=== PATIENT | female | born 2000 | race Caucasian/White ===

== ENCOUNTER 2020-03-10 16:01 | Day surgery (SDC) ==
[2020-03-10] MEDS ORDERED: Lidocaine 1% (PF) 30 ML VIAL ONE (16:27)
[2020-03-10 17:23] LABS: Hemoglobin 11.9 g/dL (12.0-16.0); Mean Corpuscular HGB CONC 33.4 g/dL (32.0-36.0); Mean Corpuscular Hemoglobin 27.8 pg (25.0-35.0); Mean Corpuscular Volume 83.2 fL (78.0-98.0); Mean Platelet Volume 8.6 fL (7.4-10.4); Platelet Count 277 thou/uL (130-400); Red Blood Cell (RBC) Count 4.29 mill/uL (4.00-5.20); White Blood Cell (WBC) Count 20.3 thou/uL (4.8-10.8)
[2020-03-10 17:46] LABS: ALT (SGPT) 7 U/L (8-55); AST (SGOT) 18 U/L (5-34); Albumin 3.3 g/dL (3.5-5.0); Alkaline Phosphatase 157 U/L (40-100); Anion Gap 12 mmol/L (10-20); BUN (Urea Nitrogen) 14 mg/dL (7.0-18.7); Bilirubin, Total 0.3 mg/dL (0.2-1.2); Calc. Creatinine Clearance 0 mL/min (70-130); Calcium 8.2 mg/dL (7.8-10.44); Carbon Dioxide 21 mmol/L (22-29); Chloride 106 mmol/L (98-107); Glucose 125 mg/dL (70-105); Potassium 3.9 mmol/L (3.5-5.1); Protein, Total 6.3 g/dL (6.0-8.3); Sodium 135 mmol/L (136-145); Uric Acid 4.5 mg/dL (2.6-6.0)
[2020-03-10 17:48] LABS: Amphetamine Not Detected (NotDetected); Barbiturates Screen Not Detected (NotDetected); Benzodiazepine Screen Not Detected (NotDetected); Cocaine Metabolite Screen Not Detected (NotDetected); Medtox Control Line Valid? VALID (VALID); Medtox Reader # READER 4; Methadone Not Detected (NotDetected); Methamphetamine Not Detected (NotDetected); Opiate Screen Not Detected (NotDetected); Oxycodone Screen Not Detected (NotDetected); Phencyclidine (PCP) Not Detected (NotDetected); THC/Cannabinoid Screen Not Detected (NotDetected); Tricyclic Screen Not Detected (NotDetected)
[2020-03-10 17:57] LABS: Creatinine, Urine 84.71 mg/dL (47-110)
[2020-03-10] MEDS ORDERED: levETIRAcetam 2,000 MG in Sodium Chloride 0.9% 100 ML IVPB SCH (18:45)
[2020-03-10 20:18] VITALS: BMI 30.2
[2020-03-10] MEDS ORDERED: hydrALAZINE 20 MG/ML VIAL SLOW IVP PRN (20:49)
--- NOTE | 2020-03-11 01:12 | PRG ---
DATE OF SERVICE: 03/10/2020 PRIMARY OB: Moe Vicente, nurse senior analyst market intelligence. CHIEF COMPLAINT: Seizure. HISTORY OF PRESENT ILLNESS: The patient is a 19-year-old G3, P1 female, who delivered at the [facility] at term by uncomplicated spontaneous vaginal delivery, who subsequently had what was believed to be a seizure witnessed by people present and was subsequently transferred to Labor and Delivery here at [facility] for further evaluation. In talking to Moe Vicente, the patient had normal blood pressures throughout her entire labor process and most of her , the patient reports that she has elevated blood pressures before and that the actually improved some. She reports her blood pressures were in the 140s before getting . Upon arrival, the patient was appeared somewhat lethargic. Talking to the , the reports that she does have a history of seizures in the past and has had about 7 seizures total with postictal states she has in the past been followed by pediatric neurologist. She also before the was on topiramate for migraines. When I spoke with the patient, the patient confirmed the same history. She has a history of seizures in the past after having a slip and a fall, hitting the back of her head seems to be the initiating event. The patient reports otherwise normal and healthy and does not remember much of the labor or delivery process. The patient denies fever, cough, headache, chest pain, shortness of breath, nausea, vomiting, diarrhea, constipation, hip problems, knee problems, or muscle weakness. The patient does self report a very significant history of anxiety to where she is very self aware and gets very overwhelmed with very small unexpected changes. PAST MEDICAL HISTORY: Migraines, seizures, and anxiety. PAST SURGICAL HISTORY: Noncontributory. ALLERGIES: CEPHALEXIN AND CODEINE. MEDICATIONS: vitamins. PHYSICAL EXAMINATION: VITAL SIGNS: Blood pressure 133/78, heart rate of 93, respiratory rate of 16, and temperature 98.1. GENERAL: Very quickly after initiating contact with the patient, the patient went from fairly lethargic appearing state to a normal interactive state, answering questions completely. She does not appear to be in any acute distress. She is alert, oriented, cooperative, and pleasant to interact with. HEAD: Normocephalic and atraumatic. LUNGS: Clear to auscultation bilaterally. HEART: Has a regular rate and rhythm. ABDOMEN: Nontender. EXTREMITIES: Nontender. She does have fairly brisk reflexes with a beat of clonus. : Her perineum shows she had a second-degree laceration from the delivery, unrepaired with that was bleeding. This was repaired at the time of evaluation with a 2-[address] needle after being given about 6 mL of 1% lidocaine. LABORATORY DATA: White count of 20,000, hemoglobin 11.9, hematocrit 35.7, and platelets of 277,000. Sodium of 135, potassium of 3.9, BUN of 14, creatinine of 0.72, glucose of 125, uric acid of 4.5. Total bilirubin of 0.3, AST of 18, ALT of 7, LDH of 216. Urine protein to creatinine ratio was 0.15. Drug screen is negative. I spoke with Dr. Slater over the phone, sharing with him her history and the fact that I do not believe that this seizure is OB related, i.e., the patient does not have any evidence of preeclampsia and believes that the seizure was more likely related to her past history. Dr. Slater reported that the patient is otherwise stable from my standpoint that she could go home after being loaded with 2000 mg of Keflex and then placed on 500 mg of Keppra twice a day. ASSESSMENT AND PLAN: The patient is a 19-year-old female, day 0, who came to Labor and Delivery immediately for concerns of seizures. The patient has no evidence of preeclampsia based on labs and blood pressure and overall picture. This seizure is likely more related to her past history. The patient has been loaded on Keflex and has been given a prescription. She has instructions to call Dr. Slater's office tomorrow to set up a followup appointment. The patient has a way to check blood pressures at home. She has been instructed to check her pressures 2 to 3 times a day for the near future as the patient by history likely has a history of chronic hypertension. The patient will likely need long-term followup. In the short term, the patient has been instructed to seek medical attention should she experience blood pressures over 160 systolic and 105 diastolic. She will be continuing her care with Moe Vicente, her certified nurse senior analyst market intelligence. The patient requested discharge as soon as possible. Given that the patient initially saw obstetric care outside of the hospital and the patient has no strong evidence of an obstetric related issue requiring hospitalization, the patient has been discharged back home with the reported medications and instructions for followup. Job ID: [id number]
[2020-03-11] MEDS ORDERED: FLU VACC QS2020-21(6MOS UP)/PF 60 MCG/0.5 ML SYRINGE IM ONE (21:00)
== END 2020-03-10 20:30 | disposition home or self-care (01) ==
LOC: EDBD 16:01 → L&D/OP 16:01
PROVIDERS: ATTEND Obstetrics & Gynecology
DX: O99.893 Other specified diseases and conditions complicating puerperium (principal); R56.9 Unspecified convulsions; O99.355 Diseases of the nervous system complicating the puerperium; G43.909 Migraine, unspecified, not intractable, without status migrainosus; O99.345 Other mental disorders complicating the puerperium; F41.9 Anxiety disorder, unspecified; Z88.1 Allergy status to other antibiotic agents; Z88.5 Allergy status to narcotic agent
CPT/HCPCS: 36415; 51701; 80053; 80306; 82570; 83615; 84156; 84550; 85027; 96365; 99282; J1953; J2001; J3490